=== PATIENT | male | born 1995 | race Hispanic/Latino ===

== ENCOUNTER 2018-12-03 15:28 | Emergency (ER) | payer SELFPAY ==
[2018-12-03 16:00] LABS: BASOPHILS % (AUTO) 0.4 % (0.0-5.0); HEMATOCRIT 44.2 % (42-54); LYMPHOCYTES % (AUTO) 13.3 % (21.0-51.0); MEAN CORPUSCULAR HEMOGLOBIN 30.9 pg (27.0-33.0); MEAN CORPUSCULAR HGB CONC 34.6 g/dL (32.0-36.0); MEAN CORPUSCULAR VOLUME 89.4 fL (79-99); MONOCYTES % (AUTO) 6.9 % (3.0-13.0); NEUTROPHILS % (AUTO) 78.4 % (40.0-77.0); PLATELET COUNT (AUTO) 273 K/uL (130-400); RED BLOOD CELL COUNT(AUTO) 4.95 MIL/uL (4.50-6.20); RED CELL DISTRIBUTION WIDTH 14.8 % (11.0-15.5); WHITE BLOOD COUNT (AUTO) 10.6 K/uL (4.8-10.8)
[2018-12-03] MEDS ORDERED: LORAZEPAM 2 MG/ML 1 ML VIAL ONE (16:03)
[2018-12-03 16:09] LABS: CREATININE 0.8 mg/dL (0.5-1.5); POTASSIUM 3.6 mmol/L (3.5-5.1)
[2018-12-03 16:14] LABS: ALBUMIN 3.9 g/dL (3.5-5.0); BILIRUBIN,TOTAL 0.2 mg/dL (0.2-1.0); TOTAL PROTEIN, SERUM 7.3 g/dL (6.0-8.3)
[2018-12-03 18:08] LABS: AMPHET/METH SCREEN,URINE NEGATIVE (NEGATIVE); BARBITURATE SCREEN, URINE NEGATIVE (NEGATIVE); BENZODIAZEPINES SCREEN,URINE NEGATIVE (NEGATIVE); CANNABINOID SCREEN,URINE POSITIVE (NEGATIVE); COCAINE SCREEN,URINE POSITIVE (NEGATIVE); OPIATE SCREEN,URINE NEGATIVE (NEGATIVE); PHENCYCLIDINE SCREEN,URINE NEGATIVE (NEGATIVE)
[2018-12-03] MEDS ORDERED: DIVALPROEX SODIUM 250 MG TABLET.DR PO ONE (19:57)
== END 2018-12-03 20:18 | disposition home or self-care (01) ==
LOC: EDH 15:28
DX: R56.9 Unspecified convulsions (principal); F19.10 Other psychoactive substance abuse, uncomplicated; I10 Essential (primary) hypertension; F12.10 Cannabis abuse, uncomplicated; F14.10 Cocaine abuse, uncomplicated; Z72.0 Tobacco use
CPT/HCPCS: 36415; 70450; 80053; 80305; 85025; 96374; 99285; G0480; J2060

== ENCOUNTER 2019-08-18 00:27 | Inpatient (IN) | payer SELFPAY ==
[~2019-08-18] VITALS: Ht 180.3 cm; Wt 101.9 kg
[2019-08-18] MEDS ORDERED: SODIUM CHLORIDE 0.9% 1000ML 1,000 ML IV ONE ×2 (01:22→09:59)
[2019-08-18] MEDS ORDERED: NALOXONE HCL 0.4 MG/1 ML ML ONE (01:22)
[2019-08-18 01:37] LABS: BASOPHILS % (AUTO) 0.2 % (0.0-5.0); EOSINOPHILS % (AUTO) 0.7 % (0.0-8.0); HEMATOCRIT 44.8 % (42-54); LYMPHOCYTES % (AUTO) 17.6 % (21.0-51.0); MEAN CORPUSCULAR HEMOGLOBIN 29.8 pg (27.0-33.0); MEAN CORPUSCULAR VOLUME 90.1 fL (79-99); MONOCYTES % (AUTO) 6.1 % (3.0-13.0); NEUTROPHILS % (AUTO) 75.2 % (40.0-77.0); PLATELET COUNT (AUTO) 307 K/uL (130-400); RED BLOOD CELL COUNT(AUTO) 4.97 MIL/uL (4.50-6.20); RED CELL DISTRIBUTION WIDTH 14.7 % (11.0-15.5)
[2019-08-18 01:52] LABS: CARBON DIOXIDE 28 mmol/L (21-32); CHLORIDE 104 mmol/L (101-111); CREATININE 0.8 mg/dL (0.5-1.5); GLOMERULAR FILTR. RATE CALC 124 mL/min (>60); GLUCOSE,RANDOM 98 mg/dL (70-105); POTASSIUM 3.5 mmol/L (3.5-5.1); SODIUM SERUM 139 mmol/L (136-145); UREA NITROGEN, BLOOD 13 mg/dL (7-18)
[2019-08-18 01:56] LABS: ALANINE AMINOTRANSFERASE 22 U/L (12-78); ALBUMIN 3.8 g/dL (3.5-5.0); ASPARTATE AMINOTRANSFERASE 13 U/L (10-37); BILIRUBIN,TOTAL 0.3 mg/dL (0.2-1.0); TOTAL PROTEIN, SERUM 7.3 g/dL (6.0-8.3)
[2019-08-18 02:30] LABS: ACETAMINOPHEN < 1 mcg/mL (10-29)
[2019-08-18] MEDS ORDERED: FLUMAZENIL 0.1MG/1ML 5ML VIAL IV ONE (03:38)
[2019-08-18] MEDS ORDERED: SODIUM CHLORIDE 0.9% 1000ML 1,000 ML IV SCH ×3 (04:39→04:45)
[2019-08-18] MEDS ORDERED: POTASSIUM CHLORIDE 20MEQ/100ML 100 ML IV PRN (04:45)
[2019-08-18] MEDS ORDERED: ONDANSETRON HCL 4 MG/2 ML VIAL IV PRN (04:45)
[2019-08-18] MEDS ORDERED: MAGNESIUM 2GM PREMIX 50ML 50 ML IV PRN (04:45)
[2019-08-18] MEDS: POTASSIUM CHLORIDE 10MEQ/100ML 10 MEQ/100 ML ML IV SCH (04:45)
[2019-08-18] MEDS ORDERED: DiphenhydrAMINE HCL 50 MG/ML VIAL IV PRN (04:45)
[2019-08-18] MEDS ORDERED: LIDOCAINE HCL-MPF 1% 2ML VIAL IJ PRN (04:45)
[2019-08-18] MEDS ORDERED: NITROGLYCERIN 0.4 MG SL TAB SL PRN (04:45)
[2019-08-18] MEDS ORDERED: ACETAMINOPHEN 325 MG TAB PO PRN ×2 (04:45)
[2019-08-18 04:48] LABS: AMPHET/METH SCREEN,URINE NEGATIVE (NEGATIVE); BARBITURATE SCREEN, URINE NEGATIVE (NEGATIVE); BENZODIAZEPINES SCREEN,URINE NEGATIVE (NEGATIVE); CANNABINOID SCREEN,URINE POSITIVE (NEGATIVE); COCAINE SCREEN,URINE POSITIVE (NEGATIVE); OPIATE SCREEN,URINE NEGATIVE (NEGATIVE); PHENCYCLIDINE SCREEN,URINE NEGATIVE (NEGATIVE)
[2019-08-18] MEDS ORDERED: POTASSIUM CHLORIDE 20MEQ/100ML 100 ML IV ONE (05:38)
[2019-08-18 05:46] LABS: APPEARANCE,URINE Cloudy (CLEAR); BILIRUBIN,URINE Negative (NEGATIVE); COLOR,URINE Yellow (YELLOW); GLUCOSE, URINE (UA) Negative (NEGATIVE); KETONES,URINE Negative (NEGATIVE); LEUKOCYTE ESTERASE ,URINE Moderate (NEGATIVE); NITRATE,URINE Negative (NEGATIVE); OCCULT BLOOD,URINE Negative (NEGATIVE); PROTEIN,URINE Negative (NEGATIVE)
[2019-08-18 05:48] LABS: INR 0.97 (0.85-1.15); PARTIAL THROMBOPLASTIN TIME 26.4 SEC (26.3-35.5); PROTHROMBIN TIME 10.5 SEC (9.6-11.6)
[2019-08-18 05:55] LABS: BACTERIA,URINE Rare /HPF (None Seen); RBC,URINE None Seen /HPF (0-1); SQUAMOUS EPITHELIAL CELL,UR Few /HPF (0-2)
[2019-08-18 06:34] LABS: MAGNESIUM 1.9 mg/dL (1.80-2.40)
[2019-08-18] MEDS: ENOXAPARIN SODIUM 30 MG/0.3 ML SQ SCH (09:00)
[2019-08-18] MEDS: FAMOTIDINE/PF 20 MG/2 ML VIAL IV SCH ×2 (09:00→22:46)
[2019-08-18] MEDS ORDERED: FAMOTIDINE/PF 20 MG/2 ML VIAL IV ONE (09:58)
[2019-08-18] MEDS ORDERED: ENOXAPARIN SODIUM 30 MG/0.3 ML SQ ONE (09:58)
--- NOTE | 2019-08-18 10:45 | NUR ---
DYSPHAGIA EVAL COMPLETED. +S/S OF ASPIRATION WITH ALL TRIALS. RECOMMEND NPO, SHORT-TERM ALTERNATE MEANS OF NUTRITION/HYDRATION. RECOMMENDATIONS: 1. RE-EVAL IN 1-2 DAYS. Pt WITH POOR EMOTIONAL STATE DURING THE EVALUATION. Pt REPORTED HE WANTED TO KILL HIMSELF. NURSE ANTHONY AWARE SHE WAS IN THE ROOM AT THE TIME OF THE STATEMENT. Addendum: 08/18/19 at 1329 by TAURUS OLSEN, [facility] Amended: Links added.
[2019-08-18] MEDS ORDERED: DEXTROSE 5 % AND 0.9 % NACL 1,000 ML IV ONE (11:14)
[2019-08-18] MEDS ORDERED: MAGNESIUM 2GM PREMIX 50ML 50 ML IV ONE (13:16)
[2019-08-18 15:50] VITALS: BP 144/74
[2019-08-18] MEDS: DEXTROSE 5 % AND 0.9 % NACL 1,000 ML IV SCH ×3 (16:13→21:56)
--- NOTE | 2019-08-18 18:17 | NUR ---
ADMISSION Patient received from ER accompanied by police and handcuffed. Placed on a 1:1 and on telemetry per doctor's orders. Patient NPO. Mostly asleep. Received call from Telemetry that HR dropped to the high 30s. He arrived in the mid 50s. Mentioned to Dr. Montejo. Patient was woken up and hear rate increased back to the mid 50s. Received second call at approximately 1755. Again, hear rate dropped to the high 30s, I woke patient up; heart rate went back to the 50s. Informed Dr. Montejo. Stated this patient is actually not his patient today, until tomorrow. Paged on-call for hospitalist group. Received call from Sonu, Nurse Practitioner and updated her. Gave orders for EKG and to take vital signs at this time. Patient updated. Also, he was received infusing D5LR at 175mL/hr and a new bag was started as soon as needed to right wrist # [id number]; site healthy and patent. At this time, police officers gayle to finger print him and he has been released from police custody. Also, he came as NPO and started to request PO intake. Explained that he had failed his bedswallow Eval and that if he continued sleeping we could not feed him due to safety concersn. Statedn he would be awake if he was fed,m but we are doing EKG at this time and pending to updated Nurse Practitioner. Patient is still somewhat sleepy.
[2019-08-18 18:30] VITALS: BP 154/92
--- NOTE | 2019-08-18 18:59 | NUR ---
UPDATE Patient kept asking for food and before any orders could be obtained, he got very visibly angry. Stated if he wasn't fed he would leave. Jumped out of bed and started motioning he was going to disconnect his lines and stating that he was going to leave. I reminded him his heart rate is getting very slow at times, that it is dangerous, and possibly even lethal; that there was a risk for him if he decided to leave. Explained to him that right now we were working on his heart issue. And that we had no orders for him to feed or leave. That if he was going to leave, it would be against medical advice. Stated he would leave. Asked if he would be willing to sign against medical advance. Stated to bring the paper, that he would sign it. Updated charge nurse Lu and she notified Pump Service Supervisor Mary. Both of them talked to patient and decided to feed patient. He went back to bed and calmed down. I updated Sonu, Nurse Practitionier over the phone. She had EKG report read to her. Also, new vital signs were informed to Sonu. She ordered a psychiatric consult but stated she would not give an order for diet since patient had failed the Bedside Swallow Evaluation; and to keep patient NPO. Dr. Jonas was doing his rounds and he was notified of consult in person and is coming to see patient. During rounds he was mellowed down and verbalized concerns about his heart rate and asked why he was having that heart rate, if he was going to , if it was serious. Questions answered within nursing scope of practice. Continues on a 1:1. Psychiatrist Dr. Jonas reviewing chart.
[2019-08-18 19:30] VITALS: BP 152/94
[2019-08-18] MEDS: MIRTAZAPINE 15 MG TABLET PO SCH (22:45)
[2019-08-19] VITALS (7 sets, daily range): BP systolic 134–163; BP diastolic 66–103
[2019-08-19] MEDS: POTASSIUM CHLORIDE 10MEQ/100ML 10 MEQ/100 ML ML IV SCH (03:44)
[2019-08-19] MEDS: DEXTROSE 5 % AND 0.9 % NACL 1,000 ML IV SCH ×4 (03:49→23:08)
[2019-08-19 06:16] LABS: HEMATOCRIT 47.1 % (42-54); MEAN CORPUSCULAR HEMOGLOBIN 29.4 pg (27.0-33.0); MEAN CORPUSCULAR HGB CONC 32.3 g/dL (32.0-36.0); MEAN CORPUSCULAR VOLUME 91.1 fL (79-99); PLATELET COUNT (AUTO) 313 K/uL (130-400); RED BLOOD CELL COUNT(AUTO) 5.17 MIL/uL (4.50-6.20); RED CELL DISTRIBUTION WIDTH 14.7 % (11.0-15.5); WHITE BLOOD COUNT (AUTO) 9.6 K/uL (4.8-10.8)
[2019-08-19 06:37] LABS: ALBUMIN 3.4 g/dL (3.5-5.0); BILIRUBIN,TOTAL 0.4 mg/dL (0.2-1.0); CREATININE 0.9 mg/dL (0.5-1.5); MAGNESIUM 2.2 mg/dL (1.80-2.40); TOTAL PROTEIN, SERUM 6.7 g/dL (6.0-8.3)
[2019-08-19 07:42] LABS: EOSINOPHILS % (MANUAL) 2 % (1-6); LYMPHOCYTES % (MANUAL) 48 % (22-44); MONOCYTES % (MANUAL) 4 % (2-9); REACTIVE LYMPHOCYTES 3 % (0-0); SEGMENTED NEUTROPHILS % 43 % (40-70)
[2019-08-19 07:43] LABS: MAN.DIFF COMMENT-IMPRESSION MANUAL DIFFERENTIAL; PLATELET MORPHOLOGY COMMENT ADEQUATE
--- NOTE | 2019-08-19 09:30 | NUR ---
DYSPHAGIA EVAL COMPLETED. -S/S OF ASPIRATION. RECOMMEND REGULAR TEXTURE, THIN LIQUIDS; PILLS WHOLE WITH LIQUIDS. Addendum: 08/19/19 at 1238 by TAURUS OLSEN, [facility] Amended: Links added.
[2019-08-19] MEDS: FAMOTIDINE/PF 20 MG/2 ML VIAL IV SCH ×2 (11:46→21:25)
[2019-08-19] MEDS: HYDROXYZINE HCL 25 MG TABLET PO SCH ×3 (11:46→21:26)
[2019-08-19] MEDS: ENOXAPARIN SODIUM 30 MG/0.3 ML SQ SCH (11:59)
--- NOTE | 2019-08-19 14:22 | NUR ---
INITIAL SW met with patient. He states he lives with his mother, Tati Acevedo but does not remember her phone number. Emergency contact is grandmother, Veena Doshi, [phone]. No home services or DME. Patient has no PCP. Pharmacy of choice is [facility] located on [facility] [address] [facility] in [place]. Patient was in custody of [place] Police upon admission but is no longer in custody. Patient is on a 1:1 observation due to voicing suicidal ideations. [facility] is home or psychiatric hospital. Patient has no insurance or benefits. He is a [place] citizen and has worked in the past. Patient was provided with community resources for post hospitalization follow up. Patient was also provided with Good RX card for prescriptions and educated on [facility] $4 medication program and [employer] $5 medication program. Patient is being assisted by [employer] for financial matters. Addendum: 08/19/19 at 1430 by ANNALEE CLAYTON SS Amended: Links added.
--- NOTE | 2019-08-19 14:31 | NUR ---
SUICIDAL IDEATIONS & SUBSTANCE ABUSE SW is presently on a 1:1 observation due to voicing suicidal ideations. Patient states he does not want to hurt himself. He states he was just frustrated. Patient denies suicidal/homicidal ideations at this time. He did admit to stating suicidal ideations more than 10 years ago but states he did not have a plan and was not serious about it. Patient states he has received services from [facility] in the past but states he also get frustrated with them. Patient is calm and states he is bored and wants to go home. Patient does admit to using cocaine and marijuana but states he does it for recreation. He did not want to elaborate on when he started to use drugs or on how much he uses. Patient did state that uses cocaine only once in a while. Patient refused any information on substance abuse counseling and stated he already knew where he could go. Patient is requesting discharge. Patient's nurse, Whitney, notified Dr. Garrison. medically cleared patient at this time. Patient will be screened by [facility] before being allowed to be discharged home. Patient aware and is laying down calmly pending [facility] screener to arrive.
--- NOTE | 2019-08-19 15:26 | NUR ---
[facility] Patient stated he wanted to leave and that he woould leave Against Medical Advise if needed. Patient татьяна a 1:1 S/T vebalization of suicidality in the ER. Patient informed of this. Stated he wanted to leave. Dr. Garrison was notified. Doctor stated his plan is to discharge patient tomorrow S/Tm patient was still sleepy when he did his rounds. Patient informed of this. Patient states he is sleeping because he is bored and because ther is nothing else to do. Dr. Garrison was notified. Stated to consult [facility] for suicidality. If patient is not suicidal and he still wants to go, patient would need to sign Against Medical Advise. Carpet Inspector Finished has already talked to patient and she has been updated.
[2019-08-19] MEDS: CEFTRIAXONE SODIUM 1 GM IVP SCH (15:52)
--- NOTE | 2019-08-19 16:13 | NUR ---
URINE CULTURE Sent urine culture. Gave rocephin. Patient is more clear in his mentation. States he does not want to leave AMA. Dr. Garrison stated plan is to D/C tomorrow if all OK. Pending for [facility] to evaluate.
--- NOTE | 2019-08-19 20:23 | NUR ---
DAY SHIFT NURSING NOTE Patient stated about a month ago he thinks he might have had a sexually transmitted disease because he was having penile discharge. States he did not get checked nor did he go to the doctor S/T embarrasement. Informed him that it is recommended to have a primary care provider and to notify him every time he has concerns about sexually transmitted diseases. Verbalized understanding. Also, educated him on informing his attending physician of this concern and to talk to him I also notified physician, Dr. Garrison. Stated he would put orders. I spoke to Lavon in the Lab and stated chlamydia and ghonorrhea lab was added to the urine sample sent earlier, and that test is already on its way; that no new sample of urine is needed. Patient has been overall calm, but he does tend to be somewhat impulsive when he gets out of bed. Gets out of bed fast, and semi-jumping. His mother visited. After he was informed that his urine was concerning for UTI and that he was being treated for it he stated he did not want to leave AMA anymore and that he was concerned about these issues. He was encouraged to talk to his doctor and discuss his concerns. Verbalized and demonstrated understanding. Intravenous fluids were temporarily stopped S/T his diastolic blood pressure increased to 109 and after IVFs were stopped, his blood pressure normalized. Rate was at 175mL/hr. Doctor electronic musical instrument repairer was paged to notify him or her of the IVFs held S/T increase in diastolic blood pressure, but no answer; reported to incoming nurse Richardson Johnson.
[2019-08-19] MEDS: MIRTAZAPINE 15 MG TABLET PO SCH (21:25)
[2019-08-20] MEDS: POTASSIUM CHLORIDE 10MEQ/100ML 10 MEQ/100 ML ML IV SCH (04:13)
[2019-08-20 05:23] VITALS: BP 144/63
[2019-08-20 08:00] VITALS: BP 149/83
[2019-08-20 08:35] LABS: RAPID PLASMA REAGIN NONREACTIVE (NONREACTIVE)
[2019-08-20] MEDS ORDERED: THIAMINE HCL 100 MG TABLET PO SCH (09:00)
[2019-08-20] MEDS ORDERED: FOLIC ACID 1 MG TABLET PO SCH (09:00)
[2019-08-20] MEDS: HYDROXYZINE HCL 25 MG TABLET PO SCH ×2 (10:17→14:43)
[2019-08-20] MEDS: FAMOTIDINE/PF 20 MG/2 ML VIAL IV SCH (10:18)
[2019-08-20] MEDS: ENOXAPARIN SODIUM 30 MG/0.3 ML SQ SCH (10:21)
--- NOTE | 2019-08-20 14:15 | NUR ---
Pt refusing telemetry, took off box. Becoming somewhat agitated, wanting to leave against medical advice. Charge Nurse and Cable Wirer spoke with pt. [facility] has already been alerted by primary nurse Carlita and are on the way to screen pt. Med Surg Online Merchant informed [employer], and Director for Risk Management. No grounds to hold against his will, however pt has agreed to stay for screening. Monitoring Continues.
[2019-08-20] MEDS: CEFTRIAXONE SODIUM 1 GM IVP SCH (14:44)
--- NOTE | 2019-08-20 14:47 | NUR ---
CHAD MOORE HERE TO INTERVIEW PT.
--- NOTE | 2019-08-20 15:08 | NUR ---
[facility] Screener Screener for [facility], Shandra Velasquez, here to meet with patient. SW provided screener with some history and some medical history provided by nursing as well. Patient has already called family to come pick him up but family was asked to wait until [facility] Screener is able to complete assessment.
--- NOTE | 2019-08-20 16:00 | NUR ---
DISCHARGED NOW USING TEACH BACK TRIED TO GIVE INFO BUT WAS WALKING UP AND DOWN ROOM ,TALKING ON PHONE AND SHOWED NO INTEREST, JUST WANTED TO GET OUT OF HERE. SALINE LOCK REMOVED AND HE LEFT.
[2019-08-21 07:13] LABS: HEPATITIS A ANTIBODY IGM Negative (Negative); HEPATITIS B CORE IGM Negative (Negative); HEPATITIS Bs ANTIGEN SCREEN P Negative (Negative)
== END 2019-08-20 16:35 | disposition home or self-care (01) | DRG 917 ==
LOC: EDH 00:27 → EEVIPCON 00:28 → EDHIP 00:28 → OBSVTOIN 00:28 → 3BH 15:40
PROVIDERS: ADMIT Internal Medicine; ATTEND Internal Medicine
DX: T40.5X1A Poisoning by cocaine, accidental (unintentional), initial encounter (principal); G92 Toxic encephalopathy; N39.0 Urinary tract infection, site not specified; D72.829 Elevated white blood cell count, unspecified; R00.1 Bradycardia, unspecified; F43.20 Adjustment disorder, unspecified; F14.10 Cocaine abuse, uncomplicated; T40.7X1A Poisoning by cannabis (derivatives), accidental (unintentional), initial encounter; F12.10 Cannabis abuse, uncomplicated; F60.2 Antisocial personality disorder; F31.9 Bipolar disorder, unspecified; G40.909 Epilepsy, unspecified, not intractable, without status epilepticus; Z82.3 Family history of stroke; Z79.899 Other long term (current) drug therapy; Y92.89 Other specified places as the place of occurrence of the external cause
CPT/HCPCS: 36415; 70450; 71045; 80053; 80074; 80305; 81001; 82140; 82150; 82948; 83605; 83690; 83735; 84145; 85025; 85610; 85730; 86592; 86701; 87040; 87088; 87390; 87486; 87797; 92610; 93005; 99291; G0378; G0480; G0481; J0696; J1650; J2310; J3475; J3480; J3490; J7030; J7042

== ENCOUNTER 2019-10-02 15:10 | Emergency (ER) | payer OTHER ==
[2019-10-02] MEDS ORDERED: LIDOCAINE HCL-MPF 1% 2ML VIAL ONE (15:36)
[2019-10-02] MEDS ORDERED: CEFTRIAXONE SODIUM 500 MG VIAL ONE (15:36)
[2019-10-02] MEDS ORDERED: AZITHROMYCIN 250 MG TABLET PO ONE (15:37)
== END 2019-10-02 16:26 | disposition home or self-care (01) ==
LOC: EDH 15:10
DX: N34.1 Nonspecific urethritis (principal); F31.9 Bipolar disorder, unspecified; Z72.0 Tobacco use
CPT/HCPCS: 87486; 87797; 96372; 99283; J0696; J3490